=== PATIENT | male | born 1940 | race Caucasian/White ===

== ENCOUNTER → 2019-10-20 09:21 | Outpatient (BNVA) | payer OTHER, SELFPAY | PROVIDERS: Family Provider Family Medicine; PCP Family Medicine; Visit Provider Nurse Practitioner | DX: M54.9 Dorsalgia, unspecified (principal); M54.6 Pain in thoracic spine; Z79.891 Long term (current) use of opiate analgesic | CPT/HCPCS: 99213 ==

== ENCOUNTER → 2020-02-09 08:20 | Outpatient (BNVA) | payer OTHER, SELFPAY | PROVIDERS: Family Provider Family Medicine; PCP Family Medicine; Visit Provider Anesthesiology | DX: G89.29 Other chronic pain (principal); M54.6 Pain in thoracic spine; Z79.891 Long term (current) use of opiate analgesic | CPT/HCPCS: 99213; 99214 ==

== ENCOUNTER 2020-03-24 10:01 | Outpatient (CLI) | payer OTHER, SELFPAY ==
--- NOTE | 2020-03-24 10:08 | CT_ITS ---
WS: [id number] CT scan of the thoracic spine. Additional two-dimensional coronal and sagittal reconstruction was per formed. 03/24/2020 Clinical Data: THORACIC SPINE PAIN Comparison: None. DLP: 989.[address] scans at [facility] use at least one of these dose optimization techniques: automat ed exposure control; mA and/or kV adjustment per patient size (includes targeted exams where dose is matched to clinical indication); or iterative reconstruction. Findings: Minimal degenerative or arthritic change of the anterior thoracic vertebral bodies is noted. There is a kyphosis. There is anterior wedging of the T11 vertebral body. There is loss of central vertebral body height of the L1 vertebral body. The disc heights are normal. No disc bulging is seen except at L1-L2. The spinous processes are normal. Osteoporosis of all the thoracic vertebral bodies is present . CT/CT thoracic spin wo con* [id number] Impression: 1. 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 2. Anterior wedging of the T11 vertebral body. 3. Loss of central vertebral body height of L1 along with disc bulging at L1-L2 . 4. Osteoporosis
== END 2020-03-24 10:02 | disposition home or self-care (01) ==
LOC: RADWPI 10:03
PROVIDERS: Family Provider Family Medicine; PCP Family Medicine; Visit Provider Family Medicine
DX: M81.0 Age-related osteoporosis without current pathological fracture (principal); M48.54XA Collapsed vertebra, not elsewhere classified, thoracic region, initial encounter for fracture
CPT/HCPCS: 72128

== ENCOUNTER → 2020-07-03 16:20 | Outpatient (BNVA) | payer OTHER, SELFPAY | PROVIDERS: Family Provider Family Medicine; PCP Family Medicine; Visit Provider Internal Medicine Cardiovascular Disease | DX: Z45.02 Encounter for adjustment and management of automatic implantable cardiac defibrillator (principal) | CPT/HCPCS: 85025; 87635 ==

== ENCOUNTER → 2020-07-06 09:58 | Outpatient (BNVA) | payer OTHER, SELFPAY | PROVIDERS: Family Provider Family Medicine; PCP Family Medicine; Visit Provider Internal Medicine Cardiovascular Disease | DX: I25.10 Atherosclerotic heart disease of native coronary artery without angina pectoris (principal) | CPT/HCPCS: 80048 ==

== ENCOUNTER → 2020-07-07 07:29 | Day surgery (SDC) | payer OTHER, SELFPAY ==
[2020-07-06 13:40] VITALS: BMI 25.8
[2020-07-07] VITALS (10 sets, daily range): BP systolic 90–126; BP diastolic 44–75; PULSE 60–61; RESP 10–16; TEMP 37; O2SAT 96–98
--- NOTE | 2020-07-07 08:07 | W.PM.OPSUD ---
Surgery/Procedure H&P Update DATE OF PROCEDURE: July 07, 2020 DATE H&P PERFORMED: 07/03/20 H&P UPDATE INFORMATION: I have reviewed H&P completed within last 30 days, I have examined patient prior to procedure and No changes to prior documentation PREOP DIAGNOSIS: Intraventricular conduction delay/PRITI PLANNED PROCEDURE: Operation Date: 07/07/20 08:30 Proposed Procedures p Pacemaker Generator Change(Not Applicable) - William Granados MD PATIENT REASSESSED PRIOR TO SEDATION, WITH NO CHANGE NOTED: Yes PHYSICAL EXAM: alert, oriented x 3 and clear to auscultation bilaterally AIRWAY EVAL/ANESTHESIA PLAN: normal airway, see other exam findings, ASA III, Risks, benefits & alternatives of sedation and/or procedure discussed and Patient agrees to continue as planned
--- NOTE | 2020-07-07 10:00 | PC.NURSE ---
RECOVERY NOTE RECEIVED THE PATIENT BACK FROM THE FRAME TABLE OPERATOR HELPER S/P ICD BATTERY CHANGE OUT VIA STRETCHER TO CPRU ROOM 4. PATIENT A & O X 3. PLACED ON BILLBOARD ERECTOR HELPER AND VITALS SIGNS OBTAINED. THE PIV TO THE LEFT AC WAS ACCIDENTALLY REMOVED DURING TRANSFER FROM BED TO BED IN THE FRAME TABLE OPERATOR HELPER. WILL LEAVE OUT FOR NOW THERE ARE NO ORDERS TO CONTINUE FLUIDS AT THIS TIME. A BIG, BULKY PRESSURE DRESSING IS NOTED TO THE LEFT UPPER CHEST. CURRENTLY D/I. THE PATIENT VOICES NO COMPLAINTS AT THIS TIME. WILL ORDER FOOD TRAY. NO OTHER ASSESSMENT CHANGES NOTED FROM PRE PROCEDURE ASSESSMENT. WILL CONTINUE TO MONITOR AND PLAN FOR DC HOME IN 3-[address] MARTINES.
--- NOTE | 2020-07-07 10:01 | PM.OP ---
Operative Report Date of procedure: July 07, 2020 Pre-op Diagnosis: Intraventricular conduction delay/PRITI Procedure: PROCEDURE: ICD REVISION PREOPERATIVE DIAGNOSIS: ICD elective replacement indication. POSTOPERATIVE DIAGNOSIS: ICD elective replacement indication. ESTIMATED BLOOD LOSS: Around 5 milliliters. COMPLICATIONS: None. BRIEF HISTORY: The patient is 79-year-old white male who had a ICD implantation for V. fib arrest, atrial fibrillation/bradycardia. The patient was found to have elective replacement indication, during routine office followup evaluation. For further management of patient's condition and for the symptomatic bradycardia, the patient required an ICD revision. Patient has a history of atherosclerotic heart disease and open heart surgery. Apparently he developed V. fib after the open heart surgery. He also has history of chronic intermittent atrial fibrillation, LV dysfunction , aortic valve surgery, dyslipidemia and degenerative joint disease. Patient is on long-term oral anticoagulation. The procedure was explained to the patient and his in detail with the risks and benefits. The risks of bleeding, hematoma, vascular injury, infection and other concomitant complications were explained in detail, which the patient understood well and consented to proceed. PROCEDURES PERFORMED: 1. Explantation of the old ICD device . 2. Implantation of the new ICD device The patient brought to the Cardiac Furniture Assembler. The left side of the neck and the subclavian area were cleaned and draped in a sterile fashion. 1% Xylocaine was used for local anesthetic agent. A 2 inch long incision was made just below the previous pacemaker scar. By sharp and blunt dissection, the ICD pocket was accessed. The old generator was delivered from the pocket. The generator was detached from the lead s. The new generator was attached to the lead. The ICD pocket was copiously irrigated with vancomycin solution. Complete hemostasis was achieved. The lead was positioned behind the generator and the generator was attached to the pectoralis fascia by suturing with 0 Surgilon. Sponge counts were confirmed. The ICD pocket was closed in layers. Skin was approximated using 4-0 Vicryl. EXPLANTED DEVICE: ICD Device: Date of implant 06/07/2012 Brand: Medtronic. Model number: DD BB 1D4. Serial number: [id number]. IMPLANTED DEVICES: Ventricular Lead: Date of implantation: 06/07/2012 Model number: [id number] Serial number: [id number] Make: Medtronic. Atrial Lead Date of implantation 06/07/2012 Model number 5076 Serial number [id number] Implanted Generator: Date of implantation 07/07/2020 Brand: Madan. Model number: [id number] Serial number: [id number] Stimulation Threshold: Through the Device--the ventricular sensing was 6.0 millivolts. Lead impedance was 532 ohms and the pacing threshold was 0.5 volts at 0.4 milliseconds. The atrial sensing was 1.6 millivolts. The lead impedance was 456 ohms and the pacing threshold was not obtained because of the atrial fibrillation. The HV lead impedance was 77/49 ohms The pacemaker was set for VVIR mode with an upper rate of 130 and a lower rate of 60. The DFT testing was not done Ventricular tachycardia detection rate was noted on The ventricular fibrillation detection rate was set at 250 bpm,.Therapy - 40J for the 1st to A pressure dressing was applied over the ICD site. The patient was transferred back to medical floor in stable condition.
--- NOTE | 2020-07-07 10:15 | PC.NURSE ---
RECOVERY NOTE DR. MARTINES AT BEDSIDE. ORDERS RECEIVED FOR THE PATIENT TO RECEIVE VANCOMYCIN 500MG IV TO INFUSE OVER ONE HOUR AT 1300. AFTER INFUSED, THE PATIENT MAY BE DISCHARGED HOME.
--- NOTE | 2020-07-07 10:45 | ECG_ITS ---
[facility] Test Date: 2020-07-07 Pat Name: Bud Jeter Department: Room: Gender: Male Demand Planner: : 1940 Requested By: William Granados Order Number: [id number] Johnnie MD: GERALDINE CARRASQUILLO Measurements Intervals [place] Rate: 61 P: MT: -1 QRS: -71 QRSD: 187 T: 74 QT: 480 QTc: 484 Interpretive Statements ELECTRONIC VENTRICULAR PACEMAKER ABNORMAL RHYTHM ECG No previous ECG available for comparison Electronically Signed On 07-07-2020 18:22:43 CDT by GERALDINE CARRASQUILLO [email or web address]
--- NOTE | 2020-07-07 11:16 | PC.NURSE ---
RECOVERY NOTE LUNCH TO THE PATIENT. NO OTHER CHANGES AT THIS TIME. PATIENT WITH NO QUESTIONS OR CONCERNS.
[2020-07-07] MEDS: vancomycin 500 MG in sodium chloride 0.9% (plus) 100 ML 100 MG IV (13:07)
--- NOTE | 2020-07-08 09:15 | PC.OT ---
OT orders received to teach ROM for rotator cuff with arm dangle and wall walk. Pt. discharged from hospital before therapist was able to provide information.
== END | disposition home or self-care (01) ==
PROVIDERS: Family Provider Family Medicine; PCP Family Medicine; Visit Provider Internal Medicine Cardiovascular Disease
DX: Z45.02 Encounter for adjustment and management of automatic implantable cardiac defibrillator (principal); I48.20 Chronic atrial fibrillation, unspecified; R00.1 Bradycardia, unspecified; I25.10 Atherosclerotic heart disease of native coronary artery without angina pectoris; E78.5 Hyperlipidemia, unspecified; Z79.01 Long term (current) use of anticoagulants; Z86.74 Personal history of sudden cardiac arrest; Z79.891 Long term (current) use of opiate analgesic; Z87.891 Personal history of nicotine dependence; Z95.2 Presence of prosthetic heart valve
CPT/HCPCS: 12345; 33241; 36415; 93005; C1721; C1769; J2250; J3010; J7030; J7050

== ENCOUNTER 2020-10-02 15:14 | Outpatient (CLI) | payer OTHER, SELFPAY ==
--- NOTE | 2020-10-02 15:45 | USCV_ITS ---
Bud Jeter Age: 80 Gender: M : 1940 Exam Date: 10/02/2020 15:33 Ordering Phys: William Granados MD ([email or web address]) Technologist: Cristina Vasques Exam Location: [facility] [place] Indication: CHEST PAIN BP: 100 / 40 HR: 78 Rhythm: Sinus Technical Quality: Adequate MEASUREMENTS (Male / Female) Normal Values 2D ECHO LV Diastolic Diameter PLAX 4.7 cm 4.2 - 5.9 / 3.9 - 5.3 cm LV Systolic Diameter PLAX 3.1 cm LV Chamber Size 3.5 cm IVS Diastolic Thickness 1.3 cm 0.6 - 1.0 / 0.6 - 0.9 cm IVS Systolic Thickness 1.6 cm LVPW Diastolic Thickness 1.2 cm 0.6 - 1.0 / 0.6 - 0.9 cm LVPW Systolic Thickness 1.6 cm RV Chamber Size 3.8 cm LVOT Diameter 2.1 cm LV Ejection Fraction 2D Teich 62.9 % LV Ejection Fraction MOD 2C 75.1 % LV Ejection Fraction 2C AL 75.3 % LA Diameter 5.3 cm LA Width 2.5 cm LA Height 4.9 cm RA Width 3.1 cm RA Height 5.0 cm Aorta at Sinotubular Diameter 3.6 cm M-MODE LV Diastolic Diameter MM 5.3 cm 4.2 - 5.9 / 3.9 - 5.3 cm LV Systolic Diameter MM 3.9 cm LV Ejection Fraction MM Teich 51.9 % IVS Diastolic Thickness MM 0.9 cm 0.6 - 1.0 / 0.6 - 0.9 cm IVS Systolic Thickness MM 1.3 cm LVPW Diastolic Thickness MM 1.2 cm 0.6 - 1.0 / 0.6 - 0.9 cm LVPW Systolic Thickness MM 1.9 cm RV Diastolic Diameter MM 1.1 cm Aortic Annulus Diameter 2.7 cm LA Ao Ratio MM 2.2 MV E Point Septal Separation 1.5 cm DOPPLER AV Peak Velocity 182.0 cm/s LVOT Peak Velocity 59.0 cm/s AV Area Cont Eq vti 1.3 cm squared AV Area Cont Eq pk 1.1 cm squared MV Area PHT 3.0 cm squared MV E' Velocity 56.0 cm/s Mitral E to MV E' Ratio 13.8 Mitral E to LV E' Lateral Ratio 12.3 Mitral E to LV E' Septal Ratio 15.7 TR Peak Velocity 210.5 cm/s TR Peak Gradient 17.7 mmHg TR Mean Velocity 140.8 cm/s TR Mean Gradient 9.2 mmHg TR Velocity Time Integral 43.6 cm TV Peak E Velocity 96.0 cm/s PV Peak Velocity 60.0 cm/s RV Acceleration Time 0.1 s RV Ejection Time 0.3 s RV AcT/ET 0.4 FINDINGS Left Ventricle Normal LV size with slightly diminished ejection fraction 50%. Mild diffuse hypokinesia of the left ventricle. Mild left ventricular hypertrophy. Right Ventricle Catheter/pacemaker wire in the right ventricular cavity. Right Atrium Catheter/pacemaker wire in the right atrial cavity. Mildly increased right atrial size. Left Atrium Mildly increased left atrial size. Mitral Valve Thickened mitral valve. Mild mitral annular calcification. Aortic Valve The bioprosthetic valve the aortic position appears to be well seated. Peak velocity across the aortic valve was 1.82 m/s Tricuspid Valve Thickened tricuspid valve. Pulmonic Valve Pulmonic valve not well visualized. Pericardium No pericardial effusion. Aorta Normal aortic annulus size. CONCLUSIONS Normal LV size with slightly diminished ejection fraction 50%. Mild diffuse hypokinesia of the left ventricle. Mild left ventricular hypertrophy. The bioprosthetic valve at the aortic position appears to be well seated. Peak velocity across the aortic valve was 1.82 m/s. Mild biatrial enlargement. There is no pericardial effusion. There are no intracardiac masses. Compared to the study from 04/15/2018, there may not be a significant change Dr William Granados MD [facility] (Electronically Signed) Final Date: 02 October 2020 19:13 S
== END 2020-10-02 15:15 | disposition home or self-care (01) ==
LOC: US 15:18
PROVIDERS: PCP Family Medicine; Visit Provider Internal Medicine Cardiovascular Disease
DX: R07.89 Other chest pain (principal); I51.7 Cardiomegaly
CPT/HCPCS: 93306

== ENCOUNTER 2020-12-04 09:43 | Outpatient (CLI) | payer OTHER, SELFPAY ==
--- NOTE | 2020-12-04 09:54 | CT_ITS ---
WS: [id number] CT HEAD TECHNIQUE: Noncontrast and contrast-enhanced CT of the head. CLINICAL INFORMATION: ATAXIA AND AMS COMPARISON: None. DLP: 2116.[address] scans at [facility] use at least one of these dose optimization techniques: automat ed exposure control; mA and/or kV adjustment per patient size (includes targeted exams where dose is matched to clinical indication); or iterative reconstruction. FINDINGS: No evidence of intracranial hemorrhage or mass effect. Ventricular system and basal cisterns are green nt. Mild small vessel changes. Moderate parenchymal volume loss. Intracranial vascular calcification. Mastoid air cells well aerated. Mild mucosal thickening in the ethmoid air cells. 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 This extends into the frontal ethmoidal recess. Cavernou s carotid calcification. No abnormal intracranial enhancement. CT/CT head wo/w con [id number] IMPRESSION: 1. No evidence of intracranial hemorrhage or mass effect. 2. Mild small vessel changes moderate parenchymal volume loss. 3. No abnormal intracranial enhancement. 4. 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
[2020-12-04] MEDS: iohexol 300 mg/mL 100 mL Btl IV (10:46)
== END 2020-12-04 09:44 | disposition home or self-care (01) ==
LOC: RADWPI 09:47
PROVIDERS: PCP Family Medicine; Visit Provider Family Medicine
DX: R27.0 Ataxia, unspecified (principal); R41.82 Altered mental status, unspecified
CPT/HCPCS: 70470; Q9967

== ENCOUNTER → 2021-01-19 10:58 | Outpatient (BNVA) | payer OTHER, SELFPAY | PROVIDERS: PCP Family Medicine; Visit Provider Urology | DX: R31.0 Gross hematuria (principal); R33.9 Retention of urine, unspecified; N40.1 Benign prostatic hyperplasia with lower urinary tract symptoms | CPT/HCPCS: 81003 ==

== ENCOUNTER 2021-01-29 20:00 | Outpatient (CLI) | payer OTHER, SELFPAY | END 2021-01-29 20:01 | disposition home or self-care (01) | LOC: SLEEP 01-30 08:50 | PROVIDERS: PCP Family Medicine; Visit Provider Family Medicine | DX: R06.83 Snoring (principal); R53.83 Other fatigue; G47.33 Obstructive sleep apnea (adult) (pediatric) | CPT/HCPCS: 95810 ==

== ENCOUNTER → 2021-03-28 14:49 | Outpatient (BNVA) | payer OTHER, SELFPAY | PROVIDERS: PCP Family Medicine; Referring Provider Family Medicine; Visit Provider Specialist | DX: M25.519 Pain in unspecified shoulder (principal); M25.512 Pain in left shoulder; G89.29 Other chronic pain | CPT/HCPCS: 73030 ==

== ENCOUNTER → 2021-07-24 10:29 | Outpatient (BNVA) | payer OTHER, SELFPAY | PROVIDERS: PCP Family Medicine; Visit Provider Urology | DX: N40.1 Benign prostatic hyperplasia with lower urinary tract symptoms (principal) | CPT/HCPCS: 81003 ==

== ENCOUNTER 2021-10-05 12:51 | Outpatient (CLI) | payer OTHER, SELFPAY ==
--- NOTE | 2021-10-05 13:04 | CT_ITS ---
WS: [id number] CT LUMBAR SPINE TECHNIQUE: Noncontrast CT of the lumbar spine with coronal and sagittal reformatted images. CLINICAL INFORMATION: POST FALL X 7 DAYS-L5 COMPRESSION FX SEEN ON XRAY COMPARISON: None. DLP: 2497.[address] scans at [facility] use at least one of these dose optimization techniques: automated e xposure control; mA and/or kV adjustment per patient size (includes targeted exams where dose is matc hed to clinical indication); or iterative reconstruction. FINDINGS: Mild lumbar curve. Comminuted burst type compression fracture involving the anterior L5 vertebral bod y. Fractures through the superior and inferior endplates with extension posteriorly. Fracture extends to the posterior L5 cortex. No significant retropulsion. Pedicles appear intact bilaterally. Loss of approximately 25-30% vertebral body height. Associated soft tissue edema. No other visualized acute fractures. L1-L2: No significant disc bulging. Moderate facet arthropathy. Spinal canal and foramen are patent. L2-L3: Mild annular bulging with slight narrowing of the subarticular recess bilaterally. Moderate fa cet arthropathy with ligamentum flavum flavum hypertrophy. Slight narrowing of the left subarticular recess. Foramen are patent. L3-L4: Mild annular bulging with a shallow central protrusion. Mild central canal stenosis. Narrowing of the subarticular recess bilaterally. Mild left greater than right foraminal narrowing. Moderate f acet arthropathy with ligamentum flavum hypertrophy. L4-L5: Slight anterolisthesis L4 on L5. Mild disc bulging with moderate central canal stenosis. Advan yuki facet arthropathy ligamentum flavum flavum hypertrophy. Impingement subarticular recess bilateral ly. Mild bilateral foraminal narrowing. L5-S1: No significant disc bulging. Spinal canal and foramen are patent. Advanced facet arthropathy. Left renal cyst measuring 2.[address]/CT lumbar spine wo con* [id number] IMPRESSION: 1. Comminuted burst type compression fracture involving the anterior L5 verteb ral body with loss of approximately 25-30% vertebral body height. Fracture invo lves the superior and inferior endplate and extends through the posterior kirk x. No significant retropulsion. 2. No other visualized fractures. 3. Moderate central canal stenosis L4-5 due to grade 1 anterolisthesis in comb ination with advanced facet arthropathy and ligamentum flavum flavum hypertroph y. 4. Mild central canal stenosis L3-4.
== END 2021-10-05 12:52 | disposition home or self-care (01) ==
LOC: RAD 12:56
PROVIDERS: PCP Family Medicine; Visit Provider Emergency Medicine Emergency Medical Services
DX: S32.051A Stable burst fracture of fifth lumbar vertebra, initial encounter for closed fracture (principal); W19.XXXA Unspecified fall, initial encounter; M48.061 Spinal stenosis, lumbar region without neurogenic claudication
CPT/HCPCS: 72131

== ENCOUNTER → 2021-12-06 13:47 | Outpatient (BNVA) | payer OTHER, SELFPAY | PROVIDERS: PCP Family Medicine; Visit Provider Internal Medicine Cardiovascular Disease | DX: I25.5 Ischemic cardiomyopathy (principal); Z87.891 Personal history of nicotine dependence; I48.11 Longstanding persistent atrial fibrillation | CPT/HCPCS: 99214 ==

== ENCOUNTER → 2021-12-21 07:54 | Outpatient (BNVA) | payer OTHER, SELFPAY | PROVIDERS: PCP Family Medicine; Visit Provider Internal Medicine Cardiovascular Disease | DX: Z45.02 Encounter for adjustment and management of automatic implantable cardiac defibrillator (principal) | CPT/HCPCS: 93283; 93284 ==

== ENCOUNTER 2022-04-19 09:22 | Outpatient (CLI) | payer OTHER, SELFPAY ==
--- NOTE | 2022-04-19 09:34 | CT_ITS ---
WS: [id number] CT HEAD WITH AND WITHOUT CONTRAST HISTORY: CONFUSION TECHNIQUE: Noncontrast 2.5 mm axial images obtained from the vertex to the skull base. Additional duncan ging performed at 2.5 mm axial images status post IV contrast. Bone and soft tissue windows are revie wed. All CT scans at [facility] use at least one of these dose optimization techniques: autom ated exposure control; mA and/or kV adjustment per patient size (includes targeted exams where dose i s matched to clinical indication); or iterative reconstruction. CONTRAST: Omnipaque 350; 95 mL IV. DLP: 2357.91 mGy.cm COMPARISON: 12/04/2020 No acute intracranial hemorrhage, edema or midline shift. Mild stable atrophy and small vessel ischem ic disease. No prior infarct. There is also mild cerebellar atrophy. No enhancing mass or vascular malformations identified. Dural venous sinuses are normally enhancing. Visualized [place] of [place] is unremarkable. Paranasal sinuses as visualized: 18 mm RIGHT frontal ethmoid sinus osteoma is again identified. Osteo phyte extends into the frontal ethmoid recesses but no change or progression. No sinus disease otherw ise or air-fluid levels. Mastoid air cells: Clear. Calvarium and scalp: Intact. Mild to moderate calcified plaque in the intracranial carotid arteries. CT/CT head wo/w con [id number] IMPRESSION: 1. Mild cerebral atrophy and small vessel ischemic disease. 2. No enhancing masses or vascular malformations. 3. Stable RIGHT frontal ethmoid sinus osteoma. 4. No aneurysm. Mild to moderate scattered plaque in the intracranial carotid arteries.
[2022-04-19] MEDS: iohexol 350 mg/mL 100 mL Btl IV (10:31)
[2022-04-19 13:03] LABS: Blood Urea Nitrogen 7 mg/dL (8-23)
== END 2022-04-19 09:23 | disposition home or self-care (01) ==
PROVIDERS: PCP Family Medicine; Visit Provider Family Medicine
DX: R42 Dizziness and giddiness (principal); I67.82 Cerebral ischemia; G31.9 Degenerative disease of nervous system, unspecified
CPT/HCPCS: 70470; 82565; 84520

== ENCOUNTER → 2022-04-26 10:01 | Outpatient (BNVA) | payer OTHER, SELFPAY | PROVIDERS: PCP Family Medicine | DX: Z45.02 Encounter for adjustment and management of automatic implantable cardiac defibrillator (principal) | CPT/HCPCS: 93283 ==

== ENCOUNTER → 2022-08-23 11:12 | Outpatient (BNVA) | payer OTHER, SELFPAY | PROVIDERS: PCP Family Medicine; Visit Provider Internal Medicine Cardiovascular Disease | DX: Z45.010 Encounter for checking and testing of cardiac pacemaker pulse generator [battery] (principal) | CPT/HCPCS: 93282 ==

== ENCOUNTER 2023-03-17 11:22 | Outpatient (CLI) | payer OTHER, SELFPAY ==
--- NOTE | 2023-03-17 11:31 | CT_ITS ---
WS: [id number] CT THORACIC SPINE TECHNIQUE: Noncontrast CT of the thoracic spine with coronal and sagittal reformatted images. CLINICAL INFORMATION: WOSENING PAIN SINCE CHIROPRACTOR TREATMENT COMPARISON: CT March 24, 2020 DLP: 672.[address] scans at [facility] use at least one of these dose optimization techniques: automated e xposure control; mA and/or kV adjustment per patient size (includes targeted exams where dose is matc hed to clinical indication); or iterative reconstruction. FINDINGS: Moderate thoracic curve. Moderate thoracic kyphosis. Chronic anterior wedging in the lower thoracic a nd upper lumbar spine with hypertrophic changes. Compression fracture T3 vertebral body with loss of approximately 50% vertebral body height new from previous. Mild retropulsion posterior cortex with mild central canal stenosis and slight contact of t he thoracic cord. Diffuse lytic lesion involves the T3 vertebral body consistent pathologic compressi on. This extends into the posterior elements LEFT greater than RIGHT. Similar-appearing lytic changes involving the T4 vertebral body extending into the LEFT greater than RIGHT posterior elements. Suspe cted ventral epidural disease at these levels. Lytic changes also appear to involve the T2 and T5 pos terior vertebral bodies. Findings suspicious for metastatic disease. Partially visualized diffuse lesions throughout the liver suspicious for hepatic metastasis on this n oncontrast study. Small esophageal hiatal hernia. Splenic granulomas. Soft tissue mass RIGHT lower lobe with multiple smaller nodules partially visualized bilaterally susp icious for neoplasm/metastatic disease. Largest in the RIGHT lower lobe partially visualized measurin g 2.1 CM. Anterior mediastinal and hilar lymphadenopathy. Adrenal glands are normal.Aortic calcificat ion. Coronary calcification CT/CT thoracic spin wo con* [id number] IMPRESSION: 1. Pathologic fracture T3 vertebral body with loss of approximately 50% verteb ral body height. Diffuse lytic lesions involving the T3 and T4 vertebral bodies extending to the posterior elements with suspicion for small amount of epidura l disease. This also probably involves the posterior T2 and T5 vertebral bodies 2. Retropulsion of the posterior T3 vertebral body with mild central canal sasha nosis. 3. Partially visualized lesions throughout the liver suspicious for hepatic me tastasis on this noncontrast study. 4. Numerous partially visualized lung nodules the largest in the RIGHT lower l obe measuring 2.1 cm suspicious for metastatic disease. 5. Partially evaluated anterior mediastinal and hilar lymphadenopathy. 6. Recommend oncology consultation with contrast-enhanced CT chest abdomen pel vis and bone scan. Dr. Jerome not currently available. Message for callback LEFT with needle punch operator.
== END 2023-03-17 11:23 | disposition home or self-care (01) ==
LOC: RAD 11:24
PROVIDERS: PCP Family Medicine; Visit Provider Family Medicine
DX: M48.54XA Collapsed vertebra, not elsewhere classified, thoracic region, initial encounter for fracture (principal); M48.04 Spinal stenosis, thoracic region; K76.9 Liver disease, unspecified; R91.8 Other nonspecific abnormal finding of lung field; R59.0 Localized enlarged lymph nodes
CPT/HCPCS: 72128

== ENCOUNTER 2023-03-29 06:36 | Outpatient (CLI) | payer OTHER, SELFPAY ==
--- NOTE | 2023-03-29 | PETR_ITS ---
PROCEDURE INFORMATION: Exam: PET/CT Whole Body Exam date and time: 03/29/2023 11:27 AM Age: 82 years old Clinical indication: Condition or disease; Primary cancer: Malignant neoplasm site unspecified; Initial oncological staging assessment LABS AND CLINICAL REPORTS: Glucose: 121 mg/dl Treatment strategy for malignancy (PET staging): Initial Staging (PI) TECHNIQUE: Imaging protocol: Following at least four-hour fasting and following the injection of radiopharmaceutical, low dose CT images were obtained. Then, PET images were obtained. Attenuation corrected images were constructed using the CT scan. Fused images of PET and CT were reviewed. The standardized uptake values (SUV) reported below are maximum values within a region of interest, expressed in gm/ml. Exam includes the whole body. Radiopharmaceutical: 12.45 mCi F-18 FDG (Fluorodeoxyglucose), IV. Time of imaging post radiopharmaceutical administration: 1 hour Injection site: Not specified COMPARISON: CT thoracic spin wo con* [id number] 03/17/2023 12:09 PM, CT head 04/19/2022, CT lumbar spine 10/05/2021 FINDINGS: Tubes, catheters and devices: Pacemaker leads are noted. Brain: Visualized brain has normal physiologic uptake. Pharynx: No abnormal uptake. Larynx: No abnormal uptake. Lungs, pleura and trachea: Dependent in patchy density in the right lower lobe is noted, with superimposed solid radiotracer avid nodules. The dominant right lower lobe nodule measures 2.1 x 1.4 cm on series 3, image 75, SUV max 5.4. Mild pleural thickening with adjacent mild patchy density in the anterior right upper lobe on series 3, image 66 measuring 3.2 x 1.8 cm is noted, SUV max 6.5, adjacent to a radiotracer avid lesion in the anterior right 2nd rib (detailed below under Bones/joints findings). Elevated uptake is noted in the right middle lobe where there is an irregularly marginated at least partially solid nodule measuring 1.1 cm on series 3, image 84, SUV max 3.8. Smaller solid-appearing noncalcified non radiotracer avid pulmonary nodules are noted bilaterally, for example in the superior aspect of the left lower lobe measuring 9 mm on series 3, image 72. Small right pleural effusion. 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 Mediastinal space: No abnormal uptake. Liver: Numerous (at least 15-20) radiotracer avid low-density lesions in the liver are present. A dominant anterior right liver lobe lesion measures 3.2 cm in diameter on series 3, image 90, SUV max 8.6. A low-density lesion in the inferior left lobe of the liver measures 1 cm on series 3, image 100, SUV max 9.1. Gallbladder and bile ducts: No abnormal uptake. Pancreas: No abnormal uptake. Spleen: No abnormal uptake. Calcified granulomas in the spleen are present. Adrenal glands: No abnormal uptake. Kidneys and ureters: Stones measuring up to 6 mm in the right kidney are noted. No hydronephrosis. A non radiotracer avid low-density lesion in the posterior mid left kidney demonstrates features compatible with a benign cyst measuring 2.6 cm in diameter. No abnormal uptake. Stomach and bowel: No abnormal uptake. There is a nonobstructing stone in the dependent aspect of the urinary bladder measuring 1.3 cm on series 3, image 151. Moderate prominence of the prostate gland, without elevated uptake. Vasculature: No abnormal uptake. Lymph nodes: Numerous radiotracer avid lymph nodes are present in the inferior right neck, mediastinum and bilateral hilar regions. Examples: Right supraclavicular space measuring 1.7 cm on series 3 image 48, SUV max 7.8; in the subcarinal space measuring 4.7 x 2.5 cm, SUV max 6.4; in the left hilar region within lymph nodes measuring up to 1.2 cm on series 3, image 78, SUV max 5.6, and in the right hilar region where there are several radiotracer avid lymph nodes measuring up to approximately 2.1 x 1.6 cm on series 3, image 75, SUV max 6.9. Bones/joints: There are numerous lytic radiotracer avid osseous lesions. Examples: Right mandibular angle where there is a lytic lesion measuring 1.7 cm in diameter, SUV max 5.6; within a comminuted mildly displaced coracoid process fracture on the right, SUV max 5.9; involving several thoracic and lumbar vertebral bodies and posterior elements, for example where there is a similar severe pathologic fracture of the T3 vertebral body associated with a lytic lesion extending into the left pedicle and left transverse process on series 3, image 61, SUV max 6.8; in the anterior right 2nd rib, SUV max 6.8; involving a pathologic fracture of the lateral left 4th rib, SUV max 6.5; in the medial right iliac bone on series 3, image 138, SUV max 5.5; left superior pubic ramus, SUV max 4.8 and pubic bone on the left, SUV max 3.5. Similar mild L1 vertebral body compression fracture. Uptake is identified within a mildly displaced left L2 transverse process fracture which may be pathologic, SUV max 4.8. A severe compression fracture of L5 is more advanced compared with 10/05/2021 without elevated uptake. There is an old incompletely united fracture of the lateral left tibial plateau and metaphysis without elevated uptake. Sternotomy wires are present. Severe left and moderate right glenohumeral joint primary osteoarthritic changes. Soft tissues: Mild uptake is identified in the high right parietal scalp where there is new mild scalp thickening for example on PET series 4, image 7, SUV max 3.4. Elevated uptake is noted in the posterior right occipital scalp on series 4, image 30, SUV max 2.9 within a soft tissue density subcutaneous nodule measuring 7 mm. METRICS: Mediastinal blood pool: SUV max 2.5 PET/PET WB melanoma INITIAL [id number] IMPRESSION: 1. Radiotracer avid right neck, mediastinal and bilateral hilar lymphadenopathy is noted consistent with malignancy. 2. Uptake in the high right parietal scalp is noted with mild asymmetric scalp thickening for which malignancy cannot be excluded. Elevated uptake in a nodular density in the subcutaneous fat of the right occipital scalp is noted concerning for malignancy. 3. Numerous radiotracer avid osseous lesions are noted which are consistent with metastatic malignancy, some of which are associated with pathologic fractures for example involving the T3 level, right coracoid process, lateral left 4th rib and possibly involving the left L2 transverse process. 4. Numerous low-density radiotracer avid lesions in the liver are consistent with malignancy, likely metastatic. 5. Right lower lobe and right middle lobe nodular densities are noted with elevated uptake, compatible with malignancy. Additional non radiotracer avid smaller bilateral pulmonary nodules are noted and although these nodules are not radiotracer avid, they are concerning for additional neoplastic involvement. 6. Additional nonurgent findings as detailed above.
== END 2023-03-29 06:37 | disposition home or self-care (01) ==
LOC: RAD 03-31 06:36
PROVIDERS: PCP Family Medicine; Visit Provider Family Medicine
DX: C80.1 Malignant (primary) neoplasm, unspecified (principal); R93.7 Abnormal findings on diagnostic imaging of other parts of musculoskeletal system; R93.89 Abnormal findings on diagnostic imaging of other specified body structures; R91.8 Other nonspecific abnormal finding of lung field
CPT/HCPCS: 78816; A9552

== ENCOUNTER 2023-04-08 09:30 | Oncology outpatient (recurring) (ONCR) | payer OTHER, SELFPAY ==
--- OUTSIDE RECORDS SUMMARY | 2023-04-08 09:33 | XMS_ITS | Patient Health Record ---
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 Phone [facility] Primary Care Provider Cj Smith MD Unavailable [phone] [place], [place] Unavailable Unavailable Richelle Flores Unavailable [phone] ALLERGIES Allergen (clinical drug ingredient) Drug/Non Drug Allergy documented on EMR Reaction Allergy Type Onset Date Status moxifloxacin moxifloxacin Unknown Drug Allergy A ctive penicillin Unknown Drug Allergy Active RESULTS Component Value Reference Range Notes Urine tox screen / MS if ind icated Reviewed date:08/14/2022 01:25:03 PM Interpretation: Performing Lab: Notes/Report: Urine tox screen / MS if ind icated Reviewed date:02/11/2023 01:13:21 PM Interpretation:Consistent Performing Lab: Notes/Report: Consistent REASON FOR REFERRAL Diagnosis 1 Pain in thoracic spi ne (M54.6) Referring Provider First Name Saritha kim Referring Provider Last Name [place] Referred Organization [facility] Referred Provider Cj Moffett Referred Address [address], [id number], Referred Provider Specialty Pain Managem ent Referral Priority Routine Diagnosis 1 Pain in thoracic spi ne (M54.6) Referring Provider First Name [place] Jayant ff Referring Provider Last Name [place] Referred Organization [facility] Referred Provider Cj Moffett Referred Address [address], [place],[id number] Referred Provider Specialty Pain Managem ent Referral Priority Routine MEDICATIONS Medication SIG (Take, Route, Frequency, Duration) Notes Start Date End Date Status Zinc 140 mg (as elemental zinc 50 mg) 1 tab orally once a day Active buPROPion 300 mg/24 hours 1 tab orally every 24 hours Active Metoprolol Tartrate 100 mg 1/2 tab orally once a day Active melatonin 10 mg orally as directed Active acetaminophen-hydrocod one 325 mg-10 mg 1-2 tabs po orally Q4-6H prn pain (max 6/day; hold within 4H of planned sleep) for 30 day(s) ICD-10: G89.29 03/13/2023 Active eszopiclone 3 mg 1 tab orally once a day (at bedtime) for sleep Active Vitamin C 1000 mg orally as directed Active DULoxetine 60 mg 1 cap orally once a day Active Vitamin B Complex as directed Active Fish Oil Active Xarelto 20 mg 1 tab orally once a day Active Vitamin D3 5000 intl units orally as directed Active cyanocobalamin 1000 mcg/mL as directed intramuscularly once a month for 30 day(s) Active NaturesPlus Huperzine Rx-Brain as directed Active busPIRone 15 mg 1 tab orally 2 times a day Active mirtazapine 30 mg 1 tab orally once a day (at bedtime) Active DHEA 25 mg orally as directed Active turmeric 500 mg orally as directed Active Depo-Testosterone cypionate 100 mg/mL as directed intramuscularly every 4 weeks for 4 week(s) Active tamsulosin 0.4 mg 1 cap orally once a day Active biotin Active AndroGel 2.5 g Packets 40.5 mg/2.5 g (1.62%) 1 PKT(S) applied topically once a day (in the morning) for 30 day(s) Active magnesium oxide 400 mg orally as directed Active SOCIAL HISTORY Tobacco Use: Social History Observation Description Date Details (start date - stop date) Former Smoker NA - NA Sex Assigned At : Social History Observation Description Sex Assigned At Unknown alcohol Question Answer Notes Did you have a drink containing alcohol in the p ast year? No Points 0 Interpretation Negative Tobacco use: Question Answer Notes : former smoker When did you stop smoking? 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) Active confirmed Thoracic spondylosis without myelopathy (106762876) Problem Pain in thoracic spine (M54.6) Active confirmed Pain in thorac ic spine (955849201) Problem Stable burst fracture of fifth lumbar vertebra, initial encounter for closed fracture (S32.051A) Active confirmed Closed fracture of lumbar vertebra without spinal cord injury (57517332) Problem Stable burst fracture of fifth lumbar vertebra, subsequent encounter for fracture with routine healing (S32.051D) Active confirmed Burst fracture of lumbar vertebra (916593859) Problem 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.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) Active confirmed Long-term curre nt use of drug therapy (079178688) Problem Spinal stenosis, lumbar region without neurogenic claudication (M48.061) Active confirmed Spinal stenosis of lumbar region (46352051) Problem Myalgia, other site (M79.18) Active confirmed Muscle pain (27307857) Problem Vertebrogenic low back pain (M54.51) Active confirmed Pain in lumbar spine (607581473) Encounters Encounter Location Date Provider Diagnosis [facility] [address] [place], [place] [id number] 05/08/2022 Cj Moffett Pain in thoracic spi ne M54.6 ; Spondylosis without myelopathy or radiculopathy, thoracic region M47.814 ; Vertebrogenic low back pain M54.51 ; Spinal stenosis, lumbar region without neurogenic claudication M48.061 ; Stable burst fracture of fifth lumbar vertebra, subsequent encounter for fracture with routine healing S32.051D ; Spondylolisthesis, lumbar region M43.16 ; Myalgia, other site M79.18 ; Other sleep disorders G47.8 and [facility] (current) use of opiate analgesic Z79.891 [facility] [place] [address] [place], [place] [id number] 08/14/2022 Cj Moffett Pain in thoracic spi ne M54.6 ; Spondylosis without myelopathy or radiculopathy, thoracic region M47.814 ; Vertebrogenic low back pain M54.51 ; Spinal stenosis, lumbar region without neurogenic claudication M48.061 ; Stable burst fracture of fifth lumbar vertebra, subsequent encounter for fracture with routine healing S32.051D ; Spondylolisthesis, lumbar region M43.16 ; Myalgia, other site M79.18 ; Other sleep disorders 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 [facility] [address] [place] [id number] 11/12/2022 Cj Moffett Pain in thoracic spi ne M54.6 ; Spondylosis without myelopathy or radiculopathy, thoracic region M47.814 ; Vertebrogenic low back pain M54.51 ; Spinal stenosis, lumbar region without neurogenic claudication M48.061 ; Stable burst fracture of fifth lumbar vertebra, subsequent encounter for fracture with routine healing S32.051D ; Spondylolisthesis, lumbar region M43.16 ; Myalgia, other site M79.18 ; Other sleep disorders G47.8 and [facility] (current) use of opiate analgesic Z79.891 [facility] [address] [place] [id number] 12/12/2022 Cj Moffett [facility], [address] [id number] 01/09/2023 Cj Moffett [facility], [address] [id number] 02/11/2023 Richelle Pintos Pain in thoracic spi ne M54.6 ; Other chronic pain G89.29 ; Stable burst fracture of fifth lumbar vertebra, subsequent encounter for fracture with routine healing S32.051D 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 Oral opioid medication use with history of benefit. Plan to continue medication management 08/14/2022 Spondylosis without myelopathy or radiculopathy, thoracic region (ICD-10 - M47.814) 08/14/2022 Pain in thoracic spine (ICD-10 - M54.6) Chronic axial thoracic spine pain. Prior conservative treatment with history of no significant, longer term, benefit. Will consider interventional spine treatment when such treatment is desired by patient. Would need to make referral(s) on patient's behalf if interventional treatment were to be desired by patient. Oral opioid medication use with history of benefit. Plan to continue medication management 11/12/2022 Spondylosis without myelopathy or radiculopathy, thoracic region (ICD-10 - M47.814) 11/12/2022 Pain in thoracic spine (ICD-10 - M54.6) Chronic axial thoracic (and lumbar) spine pain. Prior conservative treatment by patient as noted, below. Conservative treatment with history of no significant benefit. Do not anticipate offering patient any fluoroscope - guided minimally invasive interventional spine treatment for thoracic spine via this facility / provider (prior scope of practice change by this provider). Would look to make referral on patient's behalf if interventional treatment were to be desired by patient. Oral opioid medication use with history of benefit. Plan to continue medication management 02/11/2023 Other chronic pain (ICD-10 - G89.29) Patient reports that taking his pain medication allows him to get out to his doctor's appointments. Plan to continue oral opioid medication management with titration at today's visit 02/11/2023 Pain in thoracic spine (ICD-10 - M54.6) Chronic axial thoracic spine pain 02/11/2023 Stable burst fracture of fifth lumbar vertebra, subsequent encounter for fracture with routine healing (ICD-10 - S32.051D) Previous comminuted burst type compression fracture involving the anterior L5 vertebral body with loss of approximately 25-30% vertebral body height. [facility] Dr[facility] Becerril offered no treatment for fractures except for bedrest. Patient reports at today's visit that he received a chiropractic treatment and thinks he has a new fracture. [facility] 11/12/2022 Vertebrogenic low back pain (ICD-10 - M54.51) Will consider workup and possible interventional treatment in future if needed / desired by patient. Oral opioid medication use with history of benefit. Plan to continue medication management 08/14/2022 Vertebrogenic low back pain (ICD-10 - M54.51) Will consider workup and possible interventional treatment in future as needed / desired by patient. Oral opioid medication use with history of benefit. Plan to continue medication management 05/08/2022 Vertebrogenic low back pain (ICD-10 - M54.51) Will consider workup and possible interventional treatment in future as needed / desired by patient. Oral opioid medication use with history of benefit. 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) Plan urine toxicology screen today to monitor compliance regarding use of prescribed hydrocodone and for the presence of any unprescribed or illicit drugs 11/12/2022 Spinal stenosis, lumbar region without neurogenic claudication (ICD-10 - M48.061) Moderate central canal stenosis L4-5 due to grade 1 anterolisthesis in combination with advanced facet arthropathy and ligamentum flavum hypertrophy as per 10/05/21 CT report 11/12/2022 Stable burst fracture of fifth lumbar vertebra, subsequent encounter for fracture with routine healing (ICD-10 - S32.051D) Comminuted burst type compression fracture involving the anterior L5 vertebral body with loss of approximately 25-30% vertebral body height - the fracture involves the superior and inferior endplates and extends through the posterior cortex with no significant retropulsion as per 10/05/21 CT report. Patient may have also suffered a coccyx / tailbone fracture as per reviewed radiology report. [facility] Patient has reported of an appointment with Dr. Becerril (neurosurgeon) 08/14/2022 Stable burst fracture of fifth lumbar vertebra, subsequent encounter for fracture with routine healing (ICD-10 - S32.051D) Comminuted burst type compression fracture involving the anterior L5 vertebral body with loss of approximately 25-30% vertebral body height - the fracture involves the superior and inferior endplates and extends through the posterior cortex with no significant retropulsion as per 10/05/21 CT report. Patient may have also suffered a coccyx / tailbone fracture as per reviewed radiology report. Patient has [facility] a walk[facility] brace [facility] Patient has reported of an appointment with Dr. Becerirl (neurosurgeon) 05/08/2022 Stable burst fracture of fifth lumbar vertebra, subsequent encounter for fracture with routine healing (ICD-10 - S32.051D) Comminuted burst type compression fracture involving the anterior L5 vertebral body with loss of approximately 25-30% vertebral body height - the fracture involves the superior and inferior endplates and extends through the posterior cortex with no significant retropulsion as per 10/05/21 CT report. Patient may have also suffered a coccyx / tailbone fracture as per reviewed radiology report. Patient has [facility] a [facility] Patient has reported of an appointment with Dr. Becerril (neurosurgeon) 05/08/2022 Spondylolisthesis, lumbar region (ICD-10 - M43.16) Grade 1 anterolisthesis as per 10/05/21 CT report 08/14/2022 Spondylolisthesis, lumbar region (ICD-10 - M43.16) Grade 1 anterolisthesis as per 10/05/21 CT report 11/12/2022 Spondylolisthesis, lumbar region (ICD-10 - M43.16) Grade 1 anterolisthesis as per 10/05/21 CT report 11/12/2022 Myalgia, other site (ICD-10 - M79.18) 08/14/2022 Myalgia, other site (ICD-10 - M79.18) 05/08/2022 Myalgia, other site (ICD-10 - M79.18) 05/08/2022 Other sleep disorders (ICD-10 - G47.8) Patient has denied sleep symptoms. However, he has utilized Lunesta (generic Rx) for sleep in the past. Have recommended cessation of Lunesta. Will consider ordering a sleep study if the study were to be desired by the patient (was declined by patient). Plan to restrict opioid usage in relation to sleep: patient has verbalized understanding to hold short-acting opioids within four hours of planned sleep. Patient has been counseled on the risks of sleep apnea (if present), with or without opioid and / or other sedative usage, and the patient verbalized understanding and acceptance of the increased risk (sleep apnea, respiratory depression, ) with opioid and / or sedative substance usage. Patient has been counseled that synergistic risk occurs with concomitant opioid (such as hydrocodone) and sedative (such as Lunesta) usage (see CDC recommendations, below). Patient has been counseled to hold opioid and / or sedative substances prior to planned sleep or dangerous activities and patient verbalized understanding that noncompliance would be at patient's increased risk 08/14/2022 Other sleep disorders (ICD-10 - G47.8) Patient has denied sleep symptoms. However, he has utilized Lunesta (generic Rx) for sleep in the past. Have recommended cessation of Lunesta. Will consider ordering a sleep study if the study were to be desired by the patient (was declined by patient). Plan to restrict opioid usage in relation to sleep: patient has verbalized understanding to hold short-acting opioids within four hours of planned sleep. Patient has been counseled on the risks of sleep apnea (if present), with or without opioid and / or other sedative usage, and the patient verbalized understanding and acceptance of the increased risk (sleep apnea, respiratory depression, ) with opioid and / or sedative substance usage. Patient has been counseled that synergistic risk occurs with concomitant opioid (such as hydrocodone) and sedative (such as Lunesta) usage (see CDC recommendations, below). Patient has been counseled to hold opioid and / or sedative substances prior to planned sleep or dangerous activities and patient verbalized understanding that noncompliance would be at patient's increased risk 11/12/2022 Other sleep disorders (ICD-10 - G47.8) Patient has denied sleep symptoms. However, he has utilized Lunesta (generic Rx) for sleep in the past. Have recommended cessation of Lunesta. Will consider ordering a sleep study if the study were to be desired by the patient (was declined by patient). Plan to restrict opioid usage in relation to sleep: patient has verbalized understanding to hold short-acting opioids within four hours of planned sleep. Patient has been counseled on the risks of sleep apnea (if present), with or without opioid and / or other sedative usage, and the patient verbalized understanding and acceptance of the increased risk (sleep apnea, respiratory depression, ) with opioid and / or sedative substance usage. Patient has been counseled that synergistic risk occurs with concomitant opioid (such as hydrocodone) and sedative (such as Lunesta) usage (see CDC recommendations, below). Patient has been counseled to hold opioid and / or sedative substances prior to planned sleep or dangerous activities and patient verbalized understanding that noncompliance would be at patient's increased risk 11/12/2022 [facility] (current) use of opiate analgesic (ICD-10 - Z79.891) Patient has a total daily MED of 45. This places the [facility] in the [facility] moderate risk category for total daily opioid usage (not to be confused with the separate potential significant risk in regards to possible sleep apnea, above - patient has denied sleep symptoms but has taken a sleep aid Rx]). Have recommended patient taper daily doses to the lowest number of daily doses that provide effective analgesia. Patient has received the [facility] Patient Counseling Guide. Patient has had opportunity to read the Guide and ask questions pertaining to the Guide. Patient has received information regarding CDC recommendations related to concomitant opioid and sedative usage. Recommended patient taper off of Lunesta. Patient has been advised on 05/17/20 that due to the Federal Government concerns and actions, any suspected patient misuse, abuse, or diversion of controlled substances (i.e. opioids/narcotics/ronald n killers) WILL result in dissolution of treatment from this clinic. Patients adhering to the concepts contained within the patient's Treatment Agreement will be protected from such termination of care. Patient was given a copy of the Treatment Agreement, signed by patient on 04/05/20. Patient signed an opioid consent form on 04/27/20. Patient has refused offer of a Narcan nasal spray prescription 08/14/2022 [facility] (current) use of opiate analgesic (ICD-10 - Z79.891) Patient has a total daily MED of 45. This places the patient in the [facility] moderate risk category for total daily opioid usage (not to be confused with the separate potential significant risk in regards to possible sleep apnea, above - patient has denied sleep symptoms but has taken a sleep aid Rx]). Have recommended patient taper daily doses to the lowest number of daily doses that provide effective analgesia. Patient has received the Opioid Analgesic [facility] Patient Counseling Guide. Patient has had opportunity to read the Guide and ask questions pertaining to the Guide. Patient has received information regarding CDC recommendations related to concomitant opioid and sedative usage. Recommended patient taper off of Lunesta. Patient has been advised on 05/17/20 that due to the [facility] Government concerns and actions, any suspected patient misuse, abuse, or diversion of controlled substances (i.e. opioids/narcotics/ronald n killers) WILL result in dissolution of treatment from this clinic. Patients adhering to the concepts contained within the patient's Treatment Agreement will be protected from such termination of care. Patient was given a copy of the Treatment Agreement, signed by patient on 04/05/20. Patient signed an opioid consent form on 04/27/20. Patient has refused offer of a Narcan nasal spray prescription. 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 This places the patient in the [facility] moderate risk category for total daily opioid usage (not to be confused with the separate potential significant risk in regards to possible sleep apnea, above - patient has denied sleep symptoms but has taken a sleep aid Rx]). Have recommended patient taper daily doses to the lowest number of daily doses that provide effective analgesia. Patient has received the Opioid [facility] Patient Counseling Guide. Patient has had opportunity to read the Guide and ask questions pertaining to the Guide. Patient has received information regarding CDC recommendations related to concomitant opioid and sedative usage. Recommended patient taper off of Lunesta. Patient has been advised on 05/17/20 that due to the [facility] Government concerns and actions, any suspected patient misuse, abuse, or diversion of controlled substances (i.e. opioids/narcotics/ronald n killers) WILL result in dissolution of treatment from this clinic. Patients adhering to the concepts contained within the patient's Treatment Agreement will be protected from such termination of care. Patient was given a copy of the Treatment Agreement, signed by patient on 04/05/20. Patient signed an opioid consent form on 04/27/20. Patient has refused offer of a Narcan nasal spray prescription 05/08/2022 Other 08/14/2022 Other 11/12/2022 Other Due to the [place] [facility] inability to store more than 1 month of opioid prescriptions at a time, remaining eRx(s) will be sent in 30 and 60 days, as indicated 02/11/2023 Other Due to the [place] [facility]'s inability to store more than 1 month of opioid prescriptions at a time, remaining eRx(s) will be sent in 30 and 60 days, as indicated PLAN OF TREATMENT Next Appt Details Provider Name:Cj smith, 04/10/2023 07:04:00 [facility] [place] [place], [phone], Provider Name:Cj smith, 05/07/2023 10:20:00 AM[facility] [place] [place], [phone], Insurance Providers Payer Name Payer Address Payer Phone Subscriber Number Group Number Insured Name Patient Relationship to Insured Coverage Start Date Coverage End Date [employer] [address] [place] [address] [id number] Bud Jeter Self - patient is the insured MEDICAL (GENERAL) HISTORY Medical History History ICD Code Chronic pain Low back pain Lumbar spondylosis, spinal stenosis and spondylolisthesis L5 burst fracture without si gnificant retropulsion as per CT report (injury after fall) Mid back pain Thoracic spondylosis Osteoporosis and T11 anterior wedging as per prior CT scan report Pain in left shoulder Degenerative arthritis Atherosclerotic heart disease of [place] coronary artery Chronic fatigue Essential hypertension Hyperlipidemia Insomnia Male erectile dysfunction 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 Granados, 06/2020
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
== END 2023-05-08 23:59 | disposition home or self-care (01) ==
LOC: ONCMED 09:30
PROVIDERS: PCP Family Medicine; Visit Provider Internal Medicine Medical Oncology
DX: R94.8 Abnormal results of function studies of other organs and systems (principal)
CPT/HCPCS: 99204

== ENCOUNTER 2023-04-25 11:36 | Outpatient (CLI) | payer OTHER, SELFPAY ==
[2023-04-23 13:59] VITALS: BMI 23.7
[2023-04-25] VITALS (10 sets, daily range): BP systolic 95–130; BP diastolic 51–84; PULSE 93–116; RESP 16–20; TEMP 36.3; O2SAT 94–100
[2023-04-25] MEDS: sodium chloride 0.9% 1,000 ML 30 ML IV (12:34)
[2023-04-25 13:01] LABS: INR 1.06 (0.8-1.2)
--- NOTE | 2023-04-25 13:30 | US_ITS ---
WS: [id number] ULTRASOUND-GUIDED LIVER BIOPSY CLINICAL INFORMATION: liver lesion COMPARISON: PET/CT 03/29/2023 was reviewed TECHNIQUE: Conscious sedation with Versed and fentanyl was utilized The procedure including risk, benefits, and complications were discussed with the patient who agreed to proceed. Using sterile technique, the patient was prepped and draped in the usual sterile fashion. Patient was positioned [id number] and ultrasound images were obtained through the liver. A perip heral liver lesion was selected. After 1% lidocaine using ultrasound guidance, a 18-gauge achieve biopsy device was advanced into the liver mass. 6 samples were obtained. Post procedure ultrasound images demonstrate no significant tomi david or hemorrhage. No immediate complications. IMPRESSION: 1. Multiple 18-gauge core samples were obtained of the liver mass. No immediate complications. 2. Pathology is pending.
--- NOTE | 2023-04-25 14:15 | PC.NURSE ---
co2 monitoring and telemetry placed on pt. Suction equipment and ambu bag in room.
[2023-04-25] MEDS: midazolam 1 mg/mL INJ 2 mL 2 MG IVP (14:22)
[2023-04-25] MEDS: fentaNYL 50 mcg/mL INJ 2mL IVP (14:23)
[2023-04-25] MEDS: midazolam 1 mg/mL INJ 2 mL IVP (14:29)
[2023-04-25] MEDS: fentaNYL 50 mcg/mL INJ 2mL 25 MCG IVP (14:30)
--- NOTE | 2023-04-25 14:41 | PC.NURSE ---
pt on 2L nasal cannula throughout procedure.
--- NOTE | 2023-04-25 16:12 | PC.NURSE ---
Vitals and bx site monitored, no bleeding present, see documented vitals. Discharged pt home, as ordered by Dr. Swan.
== END 2023-04-25 15:56 | disposition home or self-care (01) ==
PROVIDERS: Radiology Neuroradiology; PCP Family Medicine; Visit Provider Internal Medicine Medical Oncology
DX: K76.9 Liver disease, unspecified (principal); C22.8 Malignant neoplasm of liver, primary, unspecified as to type; C79.9 Secondary malignant neoplasm of unspecified site
CPT/HCPCS: 36415; 47000; 76942; 85610; 88307; 88342; 99152; 99153; J2250; J3010; J7030